=== PATIENT | male | born 1950 | race Caucasian/White ===

== ENCOUNTER 2022-02-06 23:54 | Emergency (ER) | payer MEDICARE, BC, SELFPAY ==
[2022-02-06 23:56] VITALS: BP 153/77; PULSE 86; RESP 18; TEMP 36; O2SAT 93; BMI 36.6
--- NOTE | 2022-02-07 00:54 | EX.ED.DYSGE1 ---
HPI History of Present Illness Chief Complaint: Lower Extremity Injury Narrative Narrative: Patient is a 71-year-old male who is currently on Eliquis Plavix and aspirin. He states that this evening he was hanging out with his son and he went to step on a bar type of stool and when he did this he cut his left lower leg. He states he did not think much of this but then noticed he was having profuse bleeding and even though he tried to wrap the wound to get it to stop it continued to ooze and with concern he may need sutures presents for evaluation. PFSH PFSH Allergy/AdvReac Type Severity Reaction Status Date / Time No Known Allergies Allergy Verified 02/06/22 23:58 Social History Smoking Status: Never smoker ROS ROS ED Constitutional Constitutional ED: Denies chills or fever(s) ENT ENT ED: Denies sore throat Cardiovascular Cardiovascular: Denies chest pain Respiratory/Chest Respiratory/Chest: Denies cough or dyspnea Gastrointestinal Gastrointestinal: Denies abdominal pain, diarrhea, nausea or vomiting Genitourinary Genitourinary ED: Denies dysuria Musculoskeletal Musculoskeletal: Reports other Details: Positive left lower leg pain ; Denies myalgias Integumentary Denies rash Neurologic Neurologic: Denies headache(s) Hematologic/Lymphatic Hematologic/Lymphatic: Reports easy bleeding and easy bruising EXAM Physical Exam Const Vital Signs: 02/06/22 23:56 02/07/22 01:21 Temperature 96.8 F L Temperature Source Temporal Pulse Rate 86 78 Respiratory Rate 18 Blood Pressure 153/77 H 132/74 H Blood Pressure Mean 102 Pulse Ox 93 99 Oxygen Delivery Method Room Air Positive well nourished and well developed General Appearance ED: well developed Eyes PERRL and EOMs intact bilaterally Neck supple Resp normal respiratory effort and clear to auscultation bilaterally Cardio regular rate and regular rhythm Extremity Extremity Narrative: Patient has a skin tear as well as laceration to the lateral aspect of the left lower leg. The laceration is 2 cm in length and linear and subcutaneous layer deep. There is a persistent ooze of blood from this consistent with his history of blood thinner use. No arterial bleed noted. No foreign body or signs of ligamentous or tendon injury. Neuro oriented x3 and CN's II-XII intact bilaterally Sensorium / Orientation: alert Psych mental status grossly normal Skin no rashes or lesions noted Skin Narrative: Laceration with skin tear to the left lower leg as documented above MDM MDM MDM Narrative Medical decision making narrative: Patient presented to the ER with stable vitals. With his normal blood pressure and heart rate this goes against loss of blood leading to need for transfusion and therefore I felt there was no need for laboratory test. The patient's tetanus status was updated and the wound was sutured as documented below. Following this there was no further active bleeding and therefore the patient will have the area dressed and can follow-up on an outpatient basis Patient had his left lower leg cleaned with chlorhexidine. The area was anesthetized with 6 mL of 2% lidocaine with epinephrine in local fashion. The wound was copiously irrigated with normal saline. Then five 4 Ethilon sutures were placed in simple interrupted fashion. This brought the wound together good approximation. Patient tolerated procedure well without complication. Discharge Plan Triage Chief Complaint: Lower Extremity Injury ED Provider: Neftaly López Dx/Rx/DC Orders Clinical Impression: Laceration of left lower extremity, Current use of correction anticoagulation Instructions: ED Laceration: All Closures Primary Care Provider: CEE PHELPS Referrals: Vesta Mills DO [NON-STAFF] - 7 Days for suture removal NOT,DEFINED [NON-STAFF] - Activity Restrictions/Additional Instructions: Please see your family doctor or return to the ER in 7 days for suture removal Disposition Disposition: Home, Self Care Discharge Date/Time: 02/07/22 01:23
[2022-02-07 01:21] VITALS: BP 132/74; PULSE 78; O2SAT 99
== END 2022-02-07 01:23 | disposition home or self-care (01) ==
LOC: ED 02-07 01:00
PROVIDERS: Emergency Provider Emergency Medicine; Visit Provider Emergency Medicine
DX: S81.812A Laceration without foreign body, left lower leg, initial encounter (principal); Z79.01 Long term (current) use of anticoagulants; Z79.02 Long term (current) use of antithrombotics/antiplatelets; Z79.82 Long term (current) use of aspirin; W26.8XXA Contact with other sharp object(s), not elsewhere classified, initial encounter
CPT/HCPCS: 12001; 99282